=== PATIENT | female | born 1940 | race Caucasian/White ===

== ENCOUNTER 2021-08-28 10:12 | Emergency (ER) | payer MEDICARE ==
[~2021-08-28] VITALS: Ht 152.4 cm; Wt 47.7 kg
[~2021-08-28 10:12] MED LIST: ALBU18HF2 IH; AZIT250T PO; BUDE10.2 INH; CALC-950 PO; CHOL2000 PO; LISI20TA28 PO; TIOT18CA7 IH
--- NOTE | 2021-08-28 10:42 | NUR ---
KAI [phone] PLEASE CALL WITH UPDATE
[2021-08-28 11:01] LABS: BASOPHILS % (AUTO) 0.6 % (0-1); EOSINOPHILS % (AUTO) 0.2 % (0-6); HEMATOCRIT 35.9 % (35.0-45.0); LYMPHOCYTES # (AUTO) 0.9 X10'3 (1.1-4.8); LYMPHOCYTES % (AUTO) 12.6 % (21-51); MEAN CORPUSCULAR HEMOGLOBIN 32.1 PG (27.0-31.0); MEAN CORPUSCULAR HGB CONC 33.4 g/dL (33.0-36.5); MEAN CORPUSCULAR VOLUME 96.1 FL (78-98); MEAN PLATELET VOLUME 7.7 FL (7.4-10.4); MONOCYTES # (AUTO) 0.3 X10'3 (0-0.9); MONOCYTES % (AUTO) 3.7 % (2-12); NEUTROPHILS # (AUTO) 5.9 X10'3 (1.8-7.7); NEUTROPHILS % (AUTO) 82.9 % (42-75); PLATELET COUNT 369 X10'3 (140-440); RED BLOOD COUNT 3.74 X10'6 (4.20-5.60); RED CELL DISTRIBUTION WIDTH 13.5 % (11.5-14.5); WHITE BLOOD COUNT 7.1 X10'3 (4.5-11.0)
[2021-08-28 11:11] LABS: ALANINE AMINOTRANSFERASE 21 U/L (12-78); ALBUMIN 3.8 G/DL (3.4-5.0); ALKALINE PHOSPHATASE 95 IU/L (46-116); ANION GAP 10 (8-16); ASPARTATE AMINO TRANSFERASE 13 U/L (10-37); BILIRUBIN,TOTAL 0.5 MG/DL (0.1-1.0); BLOOD UREA NITROGEN 15 MG/DL (7-18); BUN/CREATININE RATIO 13.3 (6.6-38.0); CALCIUM 10.3 MG/DL (8.5-10.1); CHLORIDE 102 MMOL/L (99-107); CREATININE 1.13 MG/DL (0.40-0.90); GLUCOSE 119 MG/DL (70-104); POTASSIUM 4.3 MMOL/L (3.5-5.1); SODIUM 140 MMOL/L (135-145); TOTAL CARBON DIOXIDE 28.2 MMOL/L (24-32); TOTAL PROTEIN 7.5 G/DL (6.4-8.2); eGFR 46 ML/MIN
[2021-08-28 11:20] LABS: LIPASE 125 U/L (73-393)
[2021-08-28] MEDS ORDERED: metoclopramide 5 mg/ml inj IV ONE (14:10)
[2021-08-28] MEDS ORDERED: famotidine/PF 10 mg/ml inj IV ONE (14:10)
[2021-08-28] MEDS ORDERED: normal saline 1000ML IV soln IVB ONE (14:10)
[2021-08-28] MEDS ORDERED: PANT-47 PO (14:12)
[2021-08-28] MEDS ORDERED: ONDA4TAB6 PO (14:12)
[2021-08-28 16:43] VITALS: BP 138/65
== END 2021-08-28 16:30 | disposition home or self-care (01) ==
LOC: ER 10:13
DX: K52.9 Noninfective gastroenteritis and colitis, unspecified (principal); R07.89 Other chest pain; I10 Essential (primary) hypertension; J43.8 Other emphysema; K21.9 Gastro-esophageal reflux disease without esophagitis; Z90.710 Acquired absence of both cervix and uterus; Z79.2 Long term (current) use of antibiotics; Z79.899 Other long term (current) drug therapy
CPT/HCPCS: 36415; 71045; 80053; 83690; 83880; 84484; 85025; 93005; 96374; 96375; 99285; J2765; J3490; J7030; 96361

== ENCOUNTER 2023-03-05 11:07 | Emergency (ER) | payer MEDICARE ==
[~2023-03-05] VITALS: Ht 152.4 cm; Wt 50.0 kg
[~2023-03-05 11:07] MED LIST changes: +ONDA4TAB6 PO; +PANT-47 PO
[2023-03-05] MEDS ORDERED: albuterol 2.5 MG/3 ML nebule NEB ONE (11:40)
[2023-03-05 11:57] LABS: ALANINE AMINOTRANSFERASE 13 U/L (12-78); ALBUMIN 3.5 G/DL (3.4-5.0); ALKALINE PHOSPHATASE 93 IU/L (46-116); ANION GAP 6 (8-16); ASPARTATE AMINO TRANSFERASE 11 U/L (10-37); BILIRUBIN,TOTAL 0.5 MG/DL (0.1-1.0); BLOOD UREA NITROGEN 16 MG/DL (7-18); BUN/CREATININE RATIO 13.3 (10.0-20.0); CALCIUM 9.2 MG/DL (8.5-10.1); CHLORIDE 104 MMOL/L (99-107); GLUCOSE 126 MG/DL (70-104); POTASSIUM 4.2 MMOL/L (3.5-5.1); SODIUM 139 MMOL/L (135-145); TOTAL PROTEIN 7.1 G/DL (6.4-8.2); eGFR 43 ML/MIN
--- NOTE | 2023-03-05 12:03 | NUR ---
Provided patient with urine cup and wipes
[2023-03-05 12:05] LABS: BASOPHILS % (AUTO) 0.8 % (0-1); EOSINOPHILS # (AUTO) 0.1 X10'3 (0-0.9); EOSINOPHILS % (AUTO) 1.5 % (0-6); HEMATOCRIT 37.3 % (35.0-45.0); HEMOGLOBIN 12.3 g/dl (12.0-16.0); LYMPHOCYTES # (AUTO) 1.7 X10'3 (1.1-4.8); LYMPHOCYTES % (AUTO) 33.5 % (21-51); MEAN CORPUSCULAR HEMOGLOBIN 32.6 PG (27.0-31.0); MEAN PLATELET VOLUME 7.9 FL (7.4-10.4); MONOCYTES # (AUTO) 0.5 X10'3 (0-0.9); MONOCYTES % (AUTO) 10.2 % (2-12); NEUTROPHILS # (AUTO) 2.8 X10'3 (1.8-7.7); PLATELET COUNT 258 X10'3 (140-440); RED BLOOD COUNT 3.77 X10'6 (4.20-5.60); RED CELL DISTRIBUTION WIDTH 14.5 % (11.5-14.5); WHITE BLOOD COUNT 5.2 X10'3 (4.5-11.0)
[2023-03-05 13:30] LABS: COLOR,URINE YELLOW (Yellow); GLUCOSE, URINE NEGATIVE (Neg); KETONES,URINE NEGATIVE (Neg); LEUKOCYTE ESTERASE ,URINE NEGATIVE (Neg); NITRITES, URINE NEGATIVE (Neg); OCCULT BLOOD,URINE NEGATIVE (Neg); PROTEIN,URINE NEGATIVE (Neg); UROBILINOGEN,URINE 0.2 E.U/dL (0.2-1.0)
[2023-03-05 13:32] LABS: CLARITY,URINE SLIGHTLY CLOUDY (Clear); UA COLLECTION TYPE CLN CATCH MIDSTREAM
[2023-03-05 13:53] LABS: MUCUS STRANDS MODERATE /LPF (Neg); SQUAMOUS EPITHELIAL CELL,UR MANY /LPF (FEW)
[2023-03-05 13:55] LABS: BACTERIA,URINE FEW /HPF (Neg); RBC,URINE 0-2 /HPF (0-2); WBC,URINE 0-4 /HPF (0-4)
[2023-03-05 14:23] VITALS: BP 118/75
== END 2023-03-05 14:26 | disposition home or self-care (01) ==
LOC: ER 11:08
DX: B34.9 Viral infection, unspecified (principal); Z20.822 Contact with and (suspected) exposure to COVID-19
CPT/HCPCS: 36415; 71045; 80053; 81001; 83605; 83735; 83880; 84484; 85025; 87040; 87502; 87503; 87811; 93005; 94640; 94760; 99285

== ENCOUNTER 2023-08-13 09:06 | Outpatient (CLI) | payer MEDICARE | END 2023-08-13 23:59 | disposition home or self-care (01) | LOC: RT 09:06 | PROVIDERS: ATTEND Internal Medicine Pulmonary Disease | DX: J44.9 Chronic obstructive pulmonary disease, unspecified (principal); Z79.899 Other long term (current) drug therapy | CPT/HCPCS: 94618 ==

== ENCOUNTER 2024-01-06 13:12 | Inpatient (IN) | payer MEDICARE ==
[~2024-01-06] VITALS: Ht 152.4 cm; Wt 48.6 kg
[~2024-01-06 13:12] MED LIST changes: +CALC-1370 PO; -CALC-950 PO
[2024-01-06 13:52] LABS: BASOPHILS % (AUTO) 0.4 % (0-1); EOSINOPHILS # (AUTO) 0.1 X10'3 (0-0.9); HEMATOCRIT 35.9 % (35.0-45.0); HEMOGLOBIN 11.9 g/dl (12.0-16.0); LYMPHOCYTES # (AUTO) 1.8 X10'3 (1.1-4.8); LYMPHOCYTES % (AUTO) 22.5 % (21-51); MEAN CORPUSCULAR HEMOGLOBIN 32.3 PG (27.0-31.0); MEAN CORPUSCULAR HGB CONC 33.1 g/dL (33.0-36.5); MEAN CORPUSCULAR VOLUME 97.7 FL (78-98); MEAN PLATELET VOLUME 7.5 FL (7.4-10.4); MONOCYTES # (AUTO) 0.7 X10'3 (0-0.9); MONOCYTES % (AUTO) 8.2 % (2-12); NEUTROPHILS # (AUTO) 5.4 X10'3 (1.8-7.7); NEUTROPHILS % (AUTO) 67.9 % (42-75); PLATELET COUNT 398 X10'3 (140-440); RED BLOOD COUNT 3.68 X10'6 (4.20-5.60); RED CELL DISTRIBUTION WIDTH 13.1 % (11.5-14.5)
[2024-01-06 14:20] LABS: ALBUMIN 3.2 G/DL (3.4-5.0); ANION GAP 6 (8-16); BLOOD UREA NITROGEN 13 MG/DL (7-18); BUN/CREATININE RATIO 11.7 (10.0-20.0); CALCIUM 9.3 MG/DL (8.5-10.1); CHLORIDE 102 MMOL/L (99-107); CREATININE 1.11 MG/DL (0.40-0.90); GLUCOSE 100 MG/DL (70-104); POTASSIUM 4.2 MMOL/L (3.5-5.1); PRO BRAIN NATRIURETIC PEPTIDE 130 PG/ML (0-450); SODIUM 139 MMOL/L (135-145); TOTAL CARBON DIOXIDE 30.8 MMOL/L (24-32); eCRCL 27 ML/MIN; eGFR 47 ML/MIN
[2024-01-06] MEDS: methylPREDNISolone sod succ 125mg/2ml vial IV ONE (19:10)
[2024-01-06] MEDS: CefTRIAXone/D5W-Rocephin 1gm 50 ML IV ONE (19:10)
[2024-01-06] MEDS ORDERED: mag hydrox/Alum hydrox/simeth 30ml oral suspension PO PRN (21:05)
[2024-01-06] MEDS ORDERED: ondansetron/PF 4mg/2ml inj IV PRN (21:05)
[2024-01-06] MEDS ORDERED: potassium Cl 20 mEq SR tablet PO PRN ×2 (21:05)
[2024-01-06] MEDS ORDERED: magnesium 4gm in 100ml NS 100 ML IV PRN (21:05)
[2024-01-06] MEDS ORDERED: potassium Cl 40MEQ/1/2NS 520ml 520 ML IV PRN (21:05)
[2024-01-06] MEDS ORDERED: morphine 2 MG/ML inj. syringe IV PRN ×2 (21:05)
[2024-01-06] MEDS ORDERED: magnesium 2GM in 50ml NS 50 ML IV PRN (21:05)
[2024-01-06] MEDS ORDERED: magnesium Cl slow-release 64mg tablet PO PRN (21:05)
[2024-01-06] MEDS: albuterol 2.5 MG/3 ML nebule NEB ONE (22:36)
[2024-01-06] MEDS: ipratropium/albuterol 3ml nebule NEB SCH (22:37)
[2024-01-06 22:45] VITALS: PULSE 104; RESP 18; O2SAT 96
[2024-01-06 22:52] VITALS: PULSE 95; RESP 16
[2024-01-06] MEDS: guaiFENesin ER 600mg tablet PO SCH (23:02)
[2024-01-07] VITALS (15 sets, daily range): BP systolic 92–133; BP diastolic 31–64; PULSE 89–120; RESP 15–22; TEMP 97.2–98.4; O2SAT 96–100
[2024-01-07] MEDS: K and/or MAG REPLACEMENT MC SCH (08:00)
[2024-01-07] MEDS: budesonide 0.5mg/2ml UD nebule IH SCH (08:36)
[2024-01-07] MEDS: methylPREDNISolone sod succ 125mg/2ml vial IV SCH (09:54)
[2024-01-07] MEDS: heparin, porcine 5000 units/ml vial SQ SCH (09:56)
[2024-01-07] MEDS: ondansetron 4mg rapidly disintigrating tab PO SCH (09:58)
[2024-01-07] MEDS: lisinopril 20mg tablet PO SCH (09:58)
[2024-01-07] MEDS: docusate sod 100mg capsule PO SCH (09:59)
[2024-01-07] MEDS: pantoprazole 40 MG vial IV SCH (10:08)
[2024-01-07 10:49] LABS: BASOPHILS % (AUTO) 0.2 % (0-1); EOSINOPHILS % (AUTO) 0 % (0-6); HEMATOCRIT 33.3 % (35.0-45.0); HEMOGLOBIN 11.2 g/dl (12.0-16.0); LYMPHOCYTES # (AUTO) 0.9 X10'3 (1.1-4.8); LYMPHOCYTES % (AUTO) 14.3 % (21-51); MEAN CORPUSCULAR HEMOGLOBIN 32.5 PG (27.0-31.0); MEAN CORPUSCULAR HGB CONC 33.5 g/dL (33.0-36.5); MEAN CORPUSCULAR VOLUME 96.8 FL (78-98); MEAN PLATELET VOLUME 7.9 FL (7.4-10.4); MONOCYTES # (AUTO) 0.1 X10'3 (0-0.9); MONOCYTES % (AUTO) 1.5 % (2-12); NEUTROPHILS # (AUTO) 5.1 X10'3 (1.8-7.7); PLATELET COUNT 381 X10'3 (140-440); RED BLOOD COUNT 3.44 X10'6 (4.20-5.60); WHITE BLOOD COUNT 6.1 X10'3 (4.5-11.0)
[2024-01-07] MEDS ORDERED: iohexol 350MG/ML 100ml bottle IV ONE (10:57)
[2024-01-07 11:06] LABS: BILIRUBIN,URINE NEGATIVE (Neg); CLARITY,URINE SLIGHTLY CLOUDY (Clear); COLOR,URINE YELLOW (Yellow); GLUCOSE, URINE NEGATIVE (Neg); KETONES,URINE 15 mg/dl (Neg); LEUKOCYTE ESTERASE ,URINE NEGATIVE (Neg); NITRITES, URINE NEGATIVE (Neg); OCCULT BLOOD,URINE NEGATIVE (Neg); PH,URINE 5.5 (4.8-8.0); PROTEIN,URINE NEGATIVE (Neg); UROBILINOGEN,URINE 0.2 E.U/dL (0.2-1.0)
[2024-01-07 11:15] LABS: UA COLLECTION TYPE CLN CATCH MIDSTREAM
[2024-01-07 11:16] LABS: MUCUS STRANDS MODERATE /LPF (Neg); SQUAMOUS EPITHELIAL CELL,UR MANY /LPF (FEW); TRANSITIONAL EPI CELLS,URINE FEW /HPF; WBC,URINE 0-4 /HPF (0-4)
[2024-01-07 11:17] LABS: AMORPHOUS URATES 1+; BACTERIA,URINE 1+ /HPF (Neg); RBC,URINE 0-2 /HPF (0-2)
[2024-01-07 11:18] LABS: ALANINE AMINOTRANSFERASE 15 U/L (12-78); ALBUMIN/GLOBULIN RATIO 0.7 (1.1-1.5); ALKALINE PHOSPHATASE 75 IU/L (46-116); ANION GAP 12 (8-16); ASPARTATE AMINO TRANSFERASE 11 U/L (10-37); BILIRUBIN,TOTAL 0.3 MG/DL (0.1-1.0); BLOOD UREA NITROGEN 18 MG/DL (7-18); BUN/CREATININE RATIO 16.2 (10.0-20.0); CALCIUM 9.3 MG/DL (8.5-10.1); CHLORIDE 103 MMOL/L (99-107); CREATININE 1.11 MG/DL (0.40-0.90); GLUCOSE 146 MG/DL (70-104); MAGNESIUM 2.3 MG/DL (1.5-2.4); POTASSIUM 4.6 MMOL/L (3.5-5.1); SODIUM 141 MMOL/L (135-145); TOTAL CARBON DIOXIDE 26.1 MMOL/L (24-32); TOTAL PROTEIN 7.3 G/DL (6.4-8.2); eCRCL 27 ML/MIN; eGFR 47 ML/MIN
[2024-01-07] MEDS: CefTRIAXone/D5W-Rocephin 1gm 50 ML IV SCH (12:37)
[2024-01-07] MEDS: azithromycin/NS 500mg/250ml 250 ML IV SCH (15:33)
[2024-01-07] MEDS ORDERED: Melatonin 3mg tablet PO SCH (21:00)
[2024-01-07] MEDS: Melatonin 3mg tablet PO SCH (21:27)
[2024-01-08 06:25] VITALS: BP 123/61; PULSE 82; RESP 13; TEMP 98.3; O2SAT 97
[2024-01-08 06:52] LABS: BASOPHILS % (AUTO) 0.1 % (0-1); EOSINOPHILS % (AUTO) 0 % (0-6); HEMATOCRIT 29.9 % (35.0-45.0); HEMOGLOBIN 10.1 g/dl (12.0-16.0); LYMPHOCYTES # (AUTO) 0.8 X10'3 (1.1-4.8); LYMPHOCYTES % (AUTO) 9.9 % (21-51); MEAN CORPUSCULAR HEMOGLOBIN 32.8 PG (27.0-31.0); MEAN CORPUSCULAR HGB CONC 33.9 g/dL (33.0-36.5); MEAN CORPUSCULAR VOLUME 96.8 FL (78-98); MEAN PLATELET VOLUME 7.5 FL (7.4-10.4); MONOCYTES # (AUTO) 0.3 X10'3 (0-0.9); MONOCYTES % (AUTO) 3.6 % (2-12); NEUTROPHILS # (AUTO) 7.1 X10'3 (1.8-7.7); NEUTROPHILS % (AUTO) 86.4 % (42-75); PLATELET COUNT 354 X10'3 (140-440); RED BLOOD COUNT 3.08 X10'6 (4.20-5.60); RED CELL DISTRIBUTION WIDTH 12.9 % (11.5-14.5); WHITE BLOOD COUNT 8.2 X10'3 (4.5-11.0)
[2024-01-08 07:02] LABS: ALANINE AMINOTRANSFERASE 15 U/L (12-78); ALBUMIN 2.7 G/DL (3.4-5.0); ALBUMIN/GLOBULIN RATIO 0.7 (1.1-1.5); ALKALINE PHOSPHATASE 62 IU/L (46-116); ANION GAP 6 (8-16); ASPARTATE AMINO TRANSFERASE 8 U/L (10-37); BILIRUBIN,TOTAL 0.2 MG/DL (0.1-1.0); BLOOD UREA NITROGEN 22 MG/DL (7-18); BUN/CREATININE RATIO 23.2 (10.0-20.0); CALCIUM 8.8 MG/DL (8.5-10.1); CHLORIDE 104 MMOL/L (99-107); CREATININE 0.95 MG/DL (0.40-0.90); GLUCOSE 145 MG/DL (70-104); MAGNESIUM 2.4 MG/DL (1.5-2.4); POTASSIUM 4.7 MMOL/L (3.5-5.1); SODIUM 137 MMOL/L (135-145); TOTAL CARBON DIOXIDE 27.2 MMOL/L (24-32); TOTAL PROTEIN 6.5 G/DL (6.4-8.2); eCRCL 31 ML/MIN; eGFR 56 ML/MIN
[2024-01-08] MEDS: ipratropium/albuterol 3ml nebule NEB SCH (07:13)
[2024-01-08 07:44] VITALS: PULSE 99; RESP 16; O2SAT 100
[2024-01-08] MEDS: magnesium hydroxide 30ml (MOM) UD suspension PO PRN (09:23)
[2024-01-08] MEDS: acetaminophen 325mg tablet PO PRN (09:23)
[2024-01-08 10:00] VITALS: BP 114/47; PULSE 107; RESP 18; TEMP 98.7; O2SAT 95
[2024-01-08] MEDS ORDERED: CEFD300C3 PO (11:51)
[2024-01-08] MEDS ORDERED: PRED20TA PO (11:51)
[2024-01-08 11:55] VITALS: PULSE 90; RESP 16; O2SAT 98
[2024-01-08 12:12] VITALS: PULSE 94; RESP 16
[2024-01-08] MEDS: lactose-reduced food (Ensure Enlive) - 237ml bottle PO SCH (12:30)
[2024-01-08] MEDS ORDERED: azithromycin/NS 500mg/250ml 250 ML IV SCH (15:00)
== END 2024-01-08 15:15 | disposition home health service (06) | DRG 189 ==
LOC: ER 13:12 → ED HOLD 21:10 → EDBEDREQ 01-07 06:33 → ORTHO 4S 01-07 08:05
PROVIDERS: ADMIT Surgery Surgical Critical Care; ATTEND Family Medicine
PROC: B32T1ZZ Computerized Tomography (CT Scan) of Left Pulmonary Artery using Low Osmolar Contrast (ICD-10-PCS; principal; 2024-01-07)
PROC: B3201ZZ Computerized Tomography (CT Scan) of Thoracic Aorta using Low Osmolar Contrast (ICD-10-PCS; 2024-01-07)
PROC: B32S1ZZ Computerized Tomography (CT Scan) of Right Pulmonary Artery using Low Osmolar Contrast (ICD-10-PCS; 2024-01-07)
DX: J96.00 Acute respiratory failure, unspecified whether with hypoxia or hypercapnia (principal); N17.0 Acute kidney failure with tubular necrosis; J44.1 Chronic obstructive pulmonary disease with (acute) exacerbation; J20.9 Acute bronchitis, unspecified; J43.9 Emphysema, unspecified; I10 Essential (primary) hypertension; D50.9 Iron deficiency anemia, unspecified; R00.0 Tachycardia, unspecified; F10.11 Alcohol abuse, in remission; I27.20 Pulmonary hypertension, unspecified; Z20.822 Contact with and (suspected) exposure to COVID-19; K21.9 Gastro-esophageal reflux disease without esophagitis; M25.472 Effusion, left ankle; B34.9 Viral infection, unspecified; M25.471 Effusion, right ankle; Z79.899 Other long term (current) drug therapy; Z87.891 Personal history of nicotine dependence; Z90.710 Acquired absence of both cervix and uterus; Z99.81 Dependence on supplemental oxygen; Z90.49 Acquired absence of other specified parts of digestive tract; Z87.442 Personal history of urinary calculi
CPT/HCPCS: 36415; 71046; 71275; 80048; 80053; 81001; 83735; 83880; 84484; 85025; 85379; 87040; 87081; 87502; 87503; 87634; 87811; 93005; 93306; 94640; 94664; 94668; 94760; 96365; 96375; 99285; A4615; C9113; G0378; J0456; J0696; J1644; J2930; J3490; J7040; Q9967